=== PATIENT | female | born 1950 | race Caucasian/White ===

== ENCOUNTER 2016-10-17 22:43 | Inpatient (IN) | payer MEDICARE ==
[~2016-10-17] VITALS: Ht 160 cm; Wt 72.6 kg
[2016-10-18 00:45] VITALS: BP 102/68
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
[2016-10-18] MEDS ORDERED: ACETAMINOPHEN 325 MG TABLET PO PRN (01:00)
[2016-10-18] MEDS ORDERED: MAG HYDROX/AL HYDROX/SIMETH 30 ML UDC PO PRN (01:00)
[2016-10-18] MEDS ORDERED: LORAZEPAM 0.5 MG TABLET ONE (01:50)
[2016-10-18] MEDS: LORAZEPAM 0.5 MG TABLET PO PRN ×2 (01:52→10:04)
--- NOTE | 2016-10-18 01:52 | NUR ---
GPS RN NOTE, PATIENT HAS A COMPLAINT OF FEELING ANXIOUS AND WOULD LIKE MEDICATION TO HELP CALM HER DOWN. PATIENT VITAL SIGNS ARE STABLE. GAVE ATIVAN 0.5MG PO Q6HR PRN ORDERED. WILL REASSESS FOR ANXIETY AND I WILL CONTINUE TO MONITOR THIS PATIENT.
[2016-10-18] MEDS ORDERED: GABA600T2 PO (02:15)
[2016-10-18] MEDS ORDERED: DORZ10DR8 EACHEYE (02:15)
[2016-10-18] MEDS ORDERED: ZOLP10TA6 PO (02:15)
[2016-10-18] MEDS ORDERED: BRIM5DRO3 EACHEYE (02:15)
[2016-10-18] MEDS ORDERED: DIVA500T54 PO (02:15)
[2016-10-18] MEDS ORDERED: LURA80TA PO (02:15)
[2016-10-18] MEDS ORDERED: SODI15DR6 OP (02:15)
[2016-10-18] MEDS ORDERED: TIMO5DRO4 EACHEYE (02:15)
[2016-10-18] MEDS ORDERED: OMEP40CA37 PO (02:15)
[2016-10-18] MEDS ORDERED: LEVO50TA8 PO (02:15)
[2016-10-18] MEDS ORDERED: LATA2.5D7 EACHEYE (02:15)
--- NOTE | 2016-10-18 05:45 | NUR ---
GPS RN NOTE, PATIENT NEEDS A MED RECON. PAGED [facility] TO HAVE DR IMANI HIDALGO NOTIFIED. WILL CONTINUE TO MONITOR THIS PATIENT.
[2016-10-18 08:00] VITALS: BP 104/58
[2016-10-18 08:42] LABS: CHOLESTEROL 234 mg/dL (<200); HDL CHOLESTEROL 72 mg/dL (40-60); LDL 149 mg/dL (0-99); TRIGLYCERIDES 61 mg/dL (30-150)
--- NOTE | 2016-10-18 09:23 | NUR ---
WOUND CARE CONSULT: PT PRESENTS WITH LACERATIONS TO BILATERAL ARMS WHICH ARE CLOSED WITH STERI STRIPS, PRESENT ON ADMISSION. RECOMMENDATIONS MADE FOR PROTECTION. DISCUSSED WITH NURSING STAFF. RECOMMEND SURGICAL CONSULT. WILL SEE PRN. ROMERO IN AGREEMENT WITH PLAN OF CARE. Addendum: 10/18/16 at 0924 by GUILHERME RUELAS WNDNU Amended: Links added.
--- NOTE | 2016-10-18 10:05 | NUR ---
Pt. is anxious and ativan 0.5 mg po given prn. Will continue to monitor for safety.
[2016-10-18] MEDS: QUETIAPINE FUMARATE 25 MG TABLET PO SCH ×3 (13:23→22:39)
[2016-10-18] MEDS: NEOMY SULF/BACITRAC ZN/POLY 15 GM TUBE TP SCH (14:30)
[2016-10-18 16:00] VITALS: BP 103/66
[2016-10-18] MEDS: DORZOLAMIDE OPTH 2% 10 ML BOTTLE EACHEYE SCH (16:40)
[2016-10-18] MEDS: GABAPENTIN 300 MG CAPSULE PO SCH (16:41)
[2016-10-18] MEDS: LATANOPROST EYE DROP 0.005% 2.5 ML BOTTLE EACHEYE SCH (18:09)
[2016-10-18 20:00] VITALS: BP 99/64
[2016-10-18 20:19] LABS: APPEARANCE,URINE CLEAR (CLEAR); BILIRUBIN,URINE NEGATIVE (NEGATIVE); BLOOD, URINE NEGATIVE Ery/uL (NEGATIVE); COLOR,URINE YELLOW (YELLOW); KETONES,URINE NEGATIVE (NEGATIVE); LEUKOCYTE ESTERASE ,URINE NEGATIVE (NEGATIVE); NITRITE, URINE NEGATIVE (NEGATIVE); PROTEIN,URINE NEGATIVE (NEGATIVE); UGLUCOSE NEGATIVE (NEGATIVE); UROBILINOGEN,URINE 0.2 EU/dL (0.2)
[2016-10-18] MEDS ORDERED: DIVALPROEX SODIUM 125 MG CAP.SPRINK ONE (22:31)
[2016-10-18] MEDS: DIVALPROEX SODIUM 125 MG CAP.SPRINK PO SCH (22:40)
[2016-10-19] MEDS: LORAZEPAM 0.5 MG TABLET PO PRN ×3 (05:25→21:35)
--- NOTE | 2016-10-19 05:30 | NUR ---
RN NOTES: PATIENT VERBALIZED, "I'M FEELING VERY ANXIOUS." PATIENT REQUESTED FOR ANXIOLYTIC. ATIVAN 0.5 MG PO GIVEN PRN. WILL CONT TO MONITOR.
[2016-10-19 07:23] LABS: BASOPHILS % (AUTO) 0.3 % (0.0-2.0); EOSINOPHILS # (AUTO) 0.2 /CMM (0.0-0.7); EOSINOPHILS % (AUTO) 3.5 % (0.0-6.0); HEMATOCRIT 33 % (33-45); HEMOGLOBIN 10.4 g/dL (11.5-14.8); LYMPHOCYTES # (AUTO) 2.3 /CMM (0.8-4.8); LYMPHOCYTES % (AUTO) 43.7 % (20.0-44.0); MEAN CORPUSCULAR HEMOGLOBIN 25 PG (26.0-33.0); MEAN CORPUSCULAR HGB CONC 32 g/dl (31.0-36.0); MEAN CORPUSCULAR VOLUME 79 fL (82-100); MONOCYTES # (AUTO) 0.5 /CMM (0.1-1.30); MONOCYTES % (AUTO) 8.6 % (2.0-12.0); NEUTROPHILS # (AUTO) 2.3 /CMM (1.8-8.9); NEUTROPHILS % (AUTO) 43.9 % (43.0-81.0); PLATELET COUNT (AUTO) 372 /CMM (150-450); RDW COEFFICIENT OF VARIATION 18.2 (11.5-15.0); RED BLOOD CELL COUNT(AUTO) 4.15 MIL/uL (4.0-5.2); WHITE BLOOD COUNT (AUTO) 5.2 K/uL (4.3-11.0)
[2016-10-19 07:41] LABS: ALBUMIN 3.3 g/dL (3.4-5.0); BILIRUBIN,TOTAL 0.2 mg/dL (0.2-1.0); CALCIUM, SERUM 8.9 mg/dL (8.5-10.1); CREATININE 0.8 mg/dL (0.6-1.3); POTASSIUM 3.9 mmol/L (3.5-5.1); TOTAL PROTEIN, SERUM 6.2 g/dL (6.4-8.2)
[2016-10-19 07:44] LABS: THYROID STIMULATING HORMONE 1.475 uIU/mL (0.358-3.74)
[2016-10-19 08:29] VITALS: BP 109/67
[2016-10-19] MEDS: GABAPENTIN 300 MG CAPSULE PO SCH ×3 (09:08→17:43)
[2016-10-19] MEDS: LEVOTHYROXINE SODIUM 50 MCG TABLET PO SCH (09:09)
[2016-10-19] MEDS: NEOMY SULF/BACITRAC ZN/POLY 15 GM TUBE TP SCH (09:09)
[2016-10-19] MEDS: QUETIAPINE FUMARATE 25 MG TABLET PO SCH ×3 (09:09→21:32)
[2016-10-19] MEDS: PANTOPRAZOLE 40 MG TABLET.DR PO SCH (09:09)
[2016-10-19] MEDS: DORZOLAMIDE OPTH 2% 10 ML BOTTLE EACHEYE SCH ×2 (09:11→17:52)
[2016-10-19] MEDS: TIMOLOL 0.5% SOLN OPHTH 5 ML BOTTLE EACHEYE SCH (09:12)
--- NOTE | 2016-10-19 13:01 | NUR ---
ADMINISTERED ATIVAN 0.5 MG PO PRN FOR ANXIETY, V/S TAKEN BP-110/70, P-70, CONTINUED MONITORING.
[2016-10-19 16:00] VITALS: BP 98/57
[2016-10-19] MEDS: MAGNESIUM HYDROXIDE 30 ML UDC PO PRN (17:43)
--- NOTE | 2016-10-19 17:44 | NUR ---
administered milk of magnesia 30 mg/ml po per patient request for constipation, continued monitoring.
[2016-10-19] MEDS: LATANOPROST EYE DROP 0.005% 2.5 ML BOTTLE EACHEYE SCH (17:53)
--- NOTE | 2016-10-19 19:50 | NUR ---
GPS RN NOTES RECEIVED ON BED,A/O X3,ABLE TO VERBALIZED NEEDS,WITH BILATERAL ARMS LACERATION,DRESSING INTACT AND DRY,BRUISING ON BILATERAL LOWER LEGS AND LEFT ARMS.SITTER AT BEDSIDE FOR SAFETY.
[2016-10-19 20:00] VITALS: BP 103/55
[2016-10-19] MEDS: DIVALPROEX SODIUM 125 MG CAP.SPRINK PO SCH (21:32)
--- NOTE | 2016-10-19 21:35 | NUR ---
GPS RN NOTES C/O ANXIETY,MEDICATED WITH ATIVAN 0.5MG PO PER PATIENT REQUEST
[2016-10-19] MEDS: TEMAZEPAM 7.5 MG CAPSULE PO PRN (23:04)
--- NOTE | 2016-10-19 23:04 | NUR ---
GPS RN NOTES AWAKE,ASKING FOR SLEEPING PILL.MEDICATED WITH RESTORIL 7.5MG PO ORDERED
[2016-10-20 08:00] VITALS: BP 100/59
[2016-10-20] MEDS: LEVOTHYROXINE SODIUM 50 MCG TABLET PO SCH (08:50)
[2016-10-20] MEDS: LORAZEPAM 0.5 MG TABLET PO PRN ×2 (08:50→16:42)
[2016-10-20] MEDS: PANTOPRAZOLE 40 MG TABLET.DR PO SCH (08:50)
[2016-10-20] MEDS: QUETIAPINE FUMARATE 25 MG TABLET PO SCH ×3 (08:50→21:41)
[2016-10-20] MEDS: GABAPENTIN 300 MG CAPSULE PO SCH ×3 (08:50→16:41)
--- NOTE | 2016-10-20 08:50 | NUR ---
ADMINISTERED ATIVAN 0.5 MG PO PRN FOR ANXIETY, PER PATIENT REQUEST, V/S TAKEN BP-105/61, P-70, CONTINUED MONITORING.
[2016-10-20] MEDS: DORZOLAMIDE OPTH 2% 10 ML BOTTLE EACHEYE SCH ×2 (08:53→17:10)
[2016-10-20] MEDS: TIMOLOL 0.5% SOLN OPHTH 5 ML BOTTLE EACHEYE SCH (08:53)
[2016-10-20] MEDS: NEOMY SULF/BACITRAC ZN/POLY 15 GM TUBE TP SCH (08:54)
--- NOTE | 2016-10-20 09:01 | NUR ---
ADMINISTERED TYLENOL 650 MG PO PRN FOR GENERALIZED PAIN 5/10, CONTINUED MONITORING.
[2016-10-20] MEDS: HYDROCODONE/APAP 5/325MG 1 EACH TABLET PO PRN (12:31)
--- NOTE | 2016-10-20 12:31 | NUR ---
ADMINISTERED NARCO 5/325 MG PO PRN FOR GENERALIZED PAIN 11/07, V/S TAKE BP 110/70, P-72, CONTINUED MONITORING.
[2016-10-20 16:00] VITALS: BP 108/65
--- NOTE | 2016-10-20 16:42 | NUR ---
ADMINISTERED ATIVAN 0.5 MG PO PRN PER PATIENT REQUEST, V/S TAKEN BP-108/65, P-85, CONTINUED MONITORING.
[2016-10-20] MEDS: LATANOPROST EYE DROP 0.005% 2.5 ML BOTTLE EACHEYE SCH (17:11)
[2016-10-20 20:06] VITALS: BP 112/59
[2016-10-20] MEDS: DIVALPROEX SODIUM 125 MG CAP.SPRINK PO SCH (21:42)
[2016-10-20] MEDS: TEMAZEPAM 7.5 MG CAPSULE PO PRN (22:12)
[2016-10-21] MEDS: LORAZEPAM 0.5 MG TABLET PO PRN ×3 (00:19→22:34)
--- NOTE | 2016-10-21 01:48 | NUR ---
Pt has been depressed with flat affect but compliant with care w/o any promptings.
[2016-10-21 08:00] VITALS: BP 103/70
[2016-10-21] MEDS: PANTOPRAZOLE 40 MG TABLET.DR PO SCH (08:44)
[2016-10-21] MEDS: GABAPENTIN 300 MG CAPSULE PO SCH ×3 (08:45→17:31)
[2016-10-21] MEDS: LEVOTHYROXINE SODIUM 50 MCG TABLET PO SCH (08:45)
[2016-10-21] MEDS: QUETIAPINE FUMARATE 25 MG TABLET PO SCH (08:45)
--- NOTE | 2016-10-21 08:48 | NUR ---
administered ativan 0.5 mg po prn for anxiety, walking back and forth in the hallway, per patient request. v/s taken bp-107/71, p-75. Given patient safety contract paper to sign FOR prevent self harm, patient denied SI/HI at this time continued monitoring for safety all the time.
[2016-10-21] MEDS: NEOMY SULF/BACITRAC ZN/POLY 15 GM TUBE TP SCH (08:49)
[2016-10-21] MEDS: DORZOLAMIDE OPTH 2% 10 ML BOTTLE EACHEYE SCH ×2 (08:49→18:11)
[2016-10-21] MEDS: TIMOLOL 0.5% SOLN OPHTH 5 ML BOTTLE EACHEYE SCH (08:49)
[2016-10-21] MEDS: HYDROCODONE/APAP 5/325MG 1 EACH TABLET PO PRN ×2 (12:00→18:12)
--- NOTE | 2016-10-21 12:00 | NUR ---
administered narco 5/325 mg po prn for generalized pain 11/07, v/s taken bp- 110/68, p-072, continued monitoring. encouraged to increase fluid intake.
--- NOTE | 2016-10-21 12:16 | NUR ---
called and left massage psychologist Prasanth Conti about consultation. waiting for respond.
--- NOTE | 2016-10-21 12:26 | NUR ---
received call back psychologist is going to see patient tomorrow 10/22/16 early in the morning.
[2016-10-21 16:00] VITALS: BP 107/70
--- NOTE | 2016-10-21 16:39 | NUR ---
Initial discharge plan: Pt. lives with her Jez [phone] at [address] [address] and wants to be discharged there when ready. SW will follow up with Jez as he was not available today and will discuss discharge plan. SW will help form a safe and proper discharge.
[2016-10-21] MEDS: LATANOPROST EYE DROP 0.005% 2.5 ML BOTTLE EACHEYE SCH (18:11)
--- NOTE | 2016-10-21 18:12 | NUR ---
administered narco 5/325 mg po prn for generalized pain 8/10 generalized pain per patient request, v/s taken bp-107/ 70, p-77, continued monitoring.
[2016-10-21 19:48] VITALS: BP 108/71
[2016-10-21] MEDS: DIVALPROEX SODIUM 125 MG CAP.SPRINK PO SCH (21:32)
[2016-10-21] MEDS ORDERED: OLANZAPINE 2.5 MG TABLET PO SCH (22:00)
--- NOTE | 2016-10-21 22:35 | NUR ---
GPS RN PATIENT TOOK ATIVAN 0.5MG SINCE SHE STATED THAT SHE GETS AGITATED.
[2016-10-21] MEDS: TEMAZEPAM 7.5 MG CAPSULE PO PRN (23:21)
[2016-10-22] MEDS: PANTOPRAZOLE 40 MG TABLET.DR PO SCH (07:30)
[2016-10-22 08:00] VITALS: BP 100/58
[2016-10-22 08:09] VITALS: BP 105/57
[2016-10-22] MEDS: GABAPENTIN 300 MG CAPSULE PO SCH ×3 (09:07→17:41)
[2016-10-22] MEDS: LEVOTHYROXINE SODIUM 50 MCG TABLET PO SCH (09:07)
[2016-10-22] MEDS: NEOMY SULF/BACITRAC ZN/POLY 15 GM TUBE TP SCH (09:08)
[2016-10-22] MEDS: TIMOLOL 0.5% SOLN OPHTH 5 ML BOTTLE EACHEYE SCH (09:09)
[2016-10-22] MEDS: DORZOLAMIDE OPTH 2% 10 ML BOTTLE EACHEYE SCH ×2 (09:09→17:41)
[2016-10-22] MEDS: HYDROCODONE/APAP 5/325MG 1 EACH TABLET PO PRN (10:36)
--- NOTE | 2016-10-22 10:36 | NUR ---
ADMINISTERED NARCO 5/325 MG PO PRN FOR PAIN 12/08, V/S TAKE BP 120/72, P-78, CONTINUED MONITORING FOR PAIN .
[2016-10-22] MEDS: LORAZEPAM 0.5 MG TABLET PO PRN ×2 (13:17→19:54)
--- NOTE | 2016-10-22 13:18 | NUR ---
ADMINISTERED ATIVAN 0.5 MG PO PRN PER PATIENT REQUEST, V/S TAKEN BP-118/70, P-76, CONTINUED MONITORING FOR ANXIETY.
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
--- NOTE | 2016-10-22 15:04 | NUR ---
Pt. was referred to [facility] [address] [place] [address] . will follow up
[2016-10-22 16:07] VITALS: BP 105/69
[2016-10-22] MEDS: LATANOPROST EYE DROP 0.005% 2.5 ML BOTTLE EACHEYE SCH (17:42)
--- NOTE | 2016-10-22 19:45 | NUR ---
GPS RN NOTES RECEIVED ON BED A/O X3,ABLE TO VERBALIZED NEEDS,BOTH LOWER ARMS WITH DRESSING INTACT AND DRY.SITTER AT BEDSIDE FOR SAFETY.MED COMPLIANT.WILL CONTINUE TO MONITOR BEHAVIOR.
--- NOTE | 2016-10-22 19:54 | NUR ---
GPS RN NOTES C/O ANXIETY,MEDICATED WITH ATIVAN 0.5MG PO ORDERED PRN FOR ANXIETY.
[2016-10-22 20:00] VITALS: BP 105/67
[2016-10-22] MEDS: MAGNESIUM HYDROXIDE 30 ML UDC PO PRN (20:51)
--- NOTE | 2016-10-22 20:51 | NUR ---
GPS RN NOTES C/O CONSTIPATION,MEDICATED WITH MILK OF MAGNESIA 30ML PO PER PATIENT REQUEST.WILL MONITOR FOR BM.
[2016-10-22] MEDS: OLANZAPINE 2.5 MG TABLET PO SCH (21:32)
[2016-10-22] MEDS: DIVALPROEX SODIUM 125 MG CAP.SPRINK PO SCH (21:32)
[2016-10-23] MEDS: TEMAZEPAM 7.5 MG CAPSULE PO PRN ×2 (00:20→23:31)
--- NOTE | 2016-10-23 06:50 | NUR ---
GPS RN NOTES REMAINS NO BM DESPITE MOM WAS GIVEN.DENIES ABDOMINAL PAIN,SLEPT WELL.SITTER AT BEDSIDE.WILL ENDORSED TO DAY NURSE FOR VÍCTOR.
[2016-10-23 07:17] LABS: BASOPHILS % (AUTO) 0.7 % (0.0-2.0); EOSINOPHILS # (AUTO) 0.2 /CMM (0.0-0.7); EOSINOPHILS % (AUTO) 2.9 % (0.0-6.0); HEMATOCRIT 34 % (33-45); HEMOGLOBIN 10.8 g/dL (11.5-14.8); LYMPHOCYTES # (AUTO) 2.3 /CMM (0.8-4.8); LYMPHOCYTES % (AUTO) 42.7 % (20.0-44.0); MEAN CORPUSCULAR HEMOGLOBIN 25 PG (26.0-33.0); MEAN CORPUSCULAR HGB CONC 32 g/dl (31.0-36.0); MEAN CORPUSCULAR VOLUME 79 fL (82-100); MONOCYTES # (AUTO) 0.6 /CMM (0.1-1.30); MONOCYTES % (AUTO) 10.8 % (2.0-12.0); NEUTROPHILS # (AUTO) 2.3 /CMM (1.8-8.9); NEUTROPHILS % (AUTO) 42.9 % (43.0-81.0); PLATELET COUNT (AUTO) 375 /CMM (150-450); RDW COEFFICIENT OF VARIATION 18.6 (11.5-15.0); RED BLOOD CELL COUNT(AUTO) 4.34 MIL/uL (4.0-5.2); WHITE BLOOD COUNT (AUTO) 5.3 K/uL (4.3-11.0)
[2016-10-23 07:47] LABS: ALBUMIN 3.6 g/dL (3.4-5.0); BILIRUBIN,TOTAL 0.1 mg/dL (0.2-1.0); CALCIUM, SERUM 9.3 mg/dL (8.5-10.1); CREATININE 0.9 mg/dL (0.6-1.3); POTASSIUM 5.3 mmol/L (3.5-5.1); TOTAL PROTEIN, SERUM 6.6 g/dL (6.4-8.2)
[2016-10-23] MEDS: PANTOPRAZOLE 40 MG TABLET.DR PO SCH (07:48)
[2016-10-23 08:00] VITALS: BP 105/71
[2016-10-23] MEDS: GABAPENTIN 300 MG CAPSULE PO SCH ×3 (08:29→16:22)
[2016-10-23] MEDS: LEVOTHYROXINE SODIUM 50 MCG TABLET PO SCH (08:29)
[2016-10-23] MEDS: DORZOLAMIDE OPTH 2% 10 ML BOTTLE EACHEYE SCH ×2 (08:29→16:21)
[2016-10-23] MEDS: TIMOLOL 0.5% SOLN OPHTH 5 ML BOTTLE EACHEYE SCH (08:31)
[2016-10-23] MEDS: NEOMY SULF/BACITRAC ZN/POLY 15 GM TUBE TP SCH (08:31)
[2016-10-23] MEDS: OLANZAPINE 2.5 MG TABLET PO SCH ×2 (08:49→21:22)
--- NOTE | 2016-10-23 10:47 | NUR ---
RN-CO: Patient has a K level of 5.3, notified Dr Stef Duran. She was also seen and examined by Dr Finch.
[2016-10-23] MEDS ORDERED: SODIUM POLYSTYRENE SULFONATE 15 G/60 ML BOTTLE PO ONE (12:00)
[2016-10-23] MEDS: OXYBUTYNIN CHLORIDE ER 5 MG TAB PO SCH (12:10)
[2016-10-23] MEDS: LORAZEPAM 0.5 MG TABLET PO PRN (12:12)
[2016-10-23] MEDS: BENZTROPINE MESYLATE (1 MG) 1 MG TABLET PO SCH ×2 (12:43→16:21)
[2016-10-23 16:34] VITALS: BP 98/55
[2016-10-23] MEDS: LATANOPROST EYE DROP 0.005% 2.5 ML BOTTLE EACHEYE SCH (17:00)
[2016-10-23] MEDS: HYDROCODONE/APAP 5/325MG 1 EACH TABLET PO PRN (18:03)
--- NOTE | 2016-10-23 18:04 | NUR ---
RN-CO: Pt REQUESTED FOR NORCO FOR LOWER BACK PAIN 11/07.
--- NOTE | 2016-10-23 19:25 | NUR ---
GPS RN NOTES RECEIVED PT IN BED A/O X3,AWAKE, ABLE TO VERBALIZE NEEDS. NO DISTRESS, NO SOB. MED COMPLIANT. SAFETY PRECAUTIONS OBSERVED. WILL CONTINUE TO MONITOR BEHAVIOR.
[2016-10-23 20:00] VITALS: BP 95/51
[2016-10-23] MEDS: DIVALPROEX SODIUM 125 MG CAP.SPRINK PO SCH (21:23)
[2016-10-24] MEDS: HYDROCODONE/APAP 5/325MG 1 EACH TABLET PO PRN ×3 (00:54→20:19)
--- NOTE | 2016-10-24 06:36 | NUR ---
GPS RN NOTES PT IN BED RESTING COMFORTABLY. A/O X 3, AROUSES EASILY. ABLE TO VERBALIZE NEEDS. NO DISTRESS, NO SOB. MED COMPLIANT. SAFETY PRECAUTIONS OBSERVED. WILL ENDORSE TO NEXT SHIFT FOR VÍCTOR.
[2016-10-24 07:47] LABS: CALCIUM, SERUM 8.7 mg/dL (8.5-10.1); CREATININE 0.9 mg/dL (0.6-1.3); POTASSIUM 4.6 mmol/L (3.5-5.1)
[2016-10-24 08:00] VITALS: BP 96/68
[2016-10-24] MEDS: LEVOTHYROXINE SODIUM 50 MCG TABLET PO SCH (09:40)
[2016-10-24] MEDS: GABAPENTIN 300 MG CAPSULE PO SCH ×3 (09:40→16:41)
[2016-10-24] MEDS: OLANZAPINE 2.5 MG TABLET PO SCH (09:40)
[2016-10-24] MEDS: OXYBUTYNIN CHLORIDE ER 5 MG TAB PO SCH (09:40)
[2016-10-24] MEDS: PANTOPRAZOLE 40 MG TABLET.DR PO SCH (09:40)
[2016-10-24] MEDS: BENZTROPINE MESYLATE (1 MG) 1 MG TABLET PO SCH ×2 (09:41→16:41)
[2016-10-24] MEDS: TIMOLOL 0.5% SOLN OPHTH 5 ML BOTTLE EACHEYE SCH (09:42)
[2016-10-24] MEDS: DORZOLAMIDE OPTH 2% 10 ML BOTTLE EACHEYE SCH ×2 (09:42→16:48)
[2016-10-24] MEDS: NEOMY SULF/BACITRAC ZN/POLY 15 GM TUBE TP SCH (09:43)
--- NOTE | 2016-10-24 15:31 | NUR ---
Pt. is accepted to [facility] [id number] [place] [address] per CJ from the facility. Pt. was notified and agrees with the plan.
--- NOTE | 2016-10-24 15:33 | NUR ---
Pt's Jez [phone] called and left a voicemail for the social sciences professor with the new address the patient can discharge after admission. [address] [facility] [address].
[2016-10-24 16:00] VITALS: BP 100/71
[2016-10-24] MEDS: LATANOPROST EYE DROP 0.005% 2.5 ML BOTTLE EACHEYE SCH (17:41)
--- NOTE | 2016-10-24 19:30 | NUR ---
GPS RN NOTE, RECEIVED PATIENT AWAKE AND IN BED, PATIENT HAS A COMPLAINT OF LOWER BACK PAIN AT 5 OUT 10 ON THE PAIN SCALE. PATIENT IS TAKING ORAL PAIN MEDICATION FOR THIS PAIN. PATIENT IS DISPLAYING NO S/S OF APPARENT DISTRESS AT THIS TIME. PATIENT BREATHING IS UNLABORED WITH EQUAL RISE AND FALL OF THE CHEST. PATIENT IS ALERT AND ORIENTED X 3 ON ROOM AIR WITH A SPO2 96%. PATIENT COMPLAINT WITH MEDICATION, ANXIOUS, COOPERATIVE, CALM, AND NEEDS REORIENTATION. PATIENT DENIES SUICIDE AND HOMICIDAL IDEATIONS AT THIS TIME. PATIENT ASSISTED WITH TURNING AND REPOSITIONING Q2HR AND PRN FOR COMFORT AND CIRCULATION. PATIENT HAS NO NEEDS AT THIS TIME. PATIENT EDUCATED ON THE USE OF THE CALL SORTO. PATIENT BED SIDE RAILS UP X2 FOR SAFETY, BED IS LOCKED AND LOW WILL CONTINUE TO MONITOR AND MAINTAIN SAFETY.
[2016-10-24 20:00] VITALS: BP 109/72
--- NOTE | 2016-10-24 20:19 | NUR ---
GPS RN NOTE, PATIENT HAS A COMPLAINT OF LOWER BACK PAIN AT 5 OUT 10ON THE PAIN SCALE AND WOULD LIKE MEDICATION AT THIS TIME. PATIENT VITAL SIGNS ARE STABLE. GAVE NORCO 5-325 PO Q4 HR PRN ORDERED. WILL REASSESS PAIN AND I WILL CONTINUE TO MONITOR THIS PATIENT.
[2016-10-24] MEDS: DIVALPROEX SODIUM 125 MG CAP.SPRINK PO SCH (21:45)
[2016-10-24] MEDS ORDERED: OLANZAPINE 2.5 MG TABLET PO SCH (22:00)
[2016-10-25] MEDS: GABAPENTIN 300 MG CAPSULE PO SCH ×2 (09:29→13:46)
[2016-10-25] MEDS: OLANZAPINE 2.5 MG TABLET PO SCH (09:29)
[2016-10-25] MEDS: LEVOTHYROXINE SODIUM 50 MCG TABLET PO SCH (09:29)
[2016-10-25] MEDS: PANTOPRAZOLE 40 MG TABLET.DR PO SCH (09:29)
[2016-10-25] MEDS: BENZTROPINE MESYLATE (1 MG) 1 MG TABLET PO SCH (09:29)
[2016-10-25] MEDS: OXYBUTYNIN CHLORIDE ER 5 MG TAB PO SCH (09:31)
[2016-10-25] MEDS: DORZOLAMIDE OPTH 2% 10 ML BOTTLE EACHEYE SCH (09:32)
[2016-10-25] MEDS: TIMOLOL 0.5% SOLN OPHTH 5 ML BOTTLE EACHEYE SCH (09:32)
[2016-10-25] MEDS: NEOMY SULF/BACITRAC ZN/POLY 15 GM TUBE TP SCH (09:33)
[2016-10-25] MEDS: HYDROCODONE/APAP 5/325MG 1 EACH TABLET PO PRN (11:57)
[2016-10-25 12:32] LABS: BILIRUBIN,TOTAL 0.2 mg/dL (0.2-1.0); CALCIUM, SERUM 8.5 mg/dL (8.5-10.1); CREATININE 0.9 mg/dL (0.6-1.3); TOTAL PROTEIN, SERUM 5.6 g/dL (6.4-8.2)
[2016-10-25] MEDS ORDERED: DIVALPROEX SODIUM 125 MG CAP.SPRINK PO SCH ×2 (15:00→22:00)
--- NOTE | 2016-10-25 15:00 | NUR ---
GPS RN: PATIENT DISCHARGED TO [facility] PER DR. MENDOZA'S ORDER. PATIENT'S CONDITION IS STABLE FOR DISCHARGE, VS STABLE. PATIENT DENIES SI/HI/AVH. ALL BELONGINGS RETURNED TO THE PATIENT, BELONGINGS FORM SIGNED. PATIENT REFUSED TO TAKE PICTURES, STATING IT'S FINE. MEDICATION RECONCILIATION FORM ATTACHED TO THE EXIT CARE AND OTHER DISCHARGE PAPERWORK. REPORT GIVEN TO CHARAN KEENE AT THE FACILITY. PATIENT LEFT THE UNIT ON A GURNEY [facility].
--- NOTE | 2016-10-25 16:46 | NUR ---
Discharge note: Pt. wi;; discharge to [facility] [address] [place] [address] [facility]. Pts , Jez [phone] has been notified. Pt. is calm and cooperative, denies suicidal/homicidal idetaions and hallucinations. Pt. is agreeable with the discharge plan and so is the . Pt. will follow up with psychiatrist Dr. Darby on 10/28/16 at 9:00AM at the facility to discuss substance abuse dependance. Discharge paperwork has been signed and instructions will be provided to the facility prior to pt's transfer.
== END 2016-10-25 15:00 | DRG 885 ==
LOC: GPS 10-18 00:26
PROVIDERS: ADMIT Psychiatry & Neurology Psychosomatic Medicine
DX: F31.30 Bipolar disorder, current episode depressed, mild or moderate severity, unspecified (principal); E44.1 Mild protein-calorie malnutrition; R45.851 Suicidal ideations; E03.9 Hypothyroidism, unspecified; F41.9 Anxiety disorder, unspecified; K21.9 Gastro-esophageal reflux disease without esophagitis; Z91.5 Personal history of self-harm; S51.812A Laceration without foreign body of left forearm, initial encounter; X78.8XXA Intentional self-harm by other sharp object, initial encounter; Y93.9 Activity, unspecified; Y92.009 Unspecified place in unspecified non-institutional (private) residence as the place of occurrence of the external cause; E78.5 Hyperlipidemia, unspecified; E66.9 Obesity, unspecified; Z79.899 Other long term (current) drug therapy; H40.9 Unspecified glaucoma; Z68.28 Body mass index [BMI] 28.0-28.9, adult; S51.811A Laceration without foreign body of right forearm, initial encounter
CPT/HCPCS: 36415; 80048-TC; 80053-TC; 80061-TC; 80164-TC; 81000-TC; 84443-TC; 85025-TC; 87081-TC; A6402